=== PATIENT | male | born 1950 | race Two or more races ===

== ENCOUNTER 2024-03-19 14:19 | Inpatient (IN) | payer OTHER, MEDICAID ==
[~2024-03-19] VITALS: Ht 172.7 cm; Wt 71.0 kg
[~2024-03-19 14:19] MED LIST: ALLO100T PO; AMLO1TAB23 PO; APIX5TAB PO; ASPI-325 PO; DAPA1TAB4 PO; FURO20TA4 PO; INSU100I54 SC; INSU100I74 SC; INSUINJ37 SC; METO25TA93 PO; MYCO1TAB2 PO; PANT40TA57 PO; PRE5T PO
--- NOTE | 2024-03-19 14:42 | ED.PDOC ---
HPI Comments 73y M who presents to the ED for chief complaint of chest pain. Per EMS, pt was at [facility] and states he stood up and started to feel lightheaded and fell to the floor. EMS states pt did not have syncopal but states after fall, he started to have chest pain by the L side of his heart and EMS was called to the scene. EMS states pt pain was 9/10, constant, L side of chest, with no associated exacerbating or relieving factors. Pt was given 1 nitro and pt pain went from 9/10 to 7/10. Pt was given IV fluids and brought to the ED. Pt has noted history of AFIB, HTN and prior CT and is currently blood thinner eliquis. Pt otherwise has stable vitals in the ED. Pt is poor historian. Chief Complaint: Chest Pain Time Seen by MD: 14:49 Reviewed Notes: Nurses Notes, Managing Jeweler Notes Information Source: Patient, Emergency Med Personnel Mode of Arrival: EMS Brought in by: EMS Past Medical History PAST MEDICAL HISTORY: AFIB, HTN, CT Surgical History: PTCA Family History Family History: Unknown Social History Smoker: Non-Smoker Alcohol: Denies ETOH Use Drugs: Denies Drug Use Lives In: Home Constitutional: denies: chills, diaphoresis, fatigue, fever, malaise, sweats, weakness, others EENTM: denies: blurred vision, double vision, ear bleeding, ear discharge, ear drainage, ear pain, ear ringing, eye pain, eye redness, hearing loss, mouth pain, mouth swelling, nasal discharge, nose bleeding, nose congestion, nose pain, photophobia, tearing, throat pain, throat swelling, voice changes, others Respiratory: denies: cough, hemoptysis, orthopnea, SOB at rest, shortness of breath, SOB with excertion, stridor, wheezing, others Cardiovascular: reports: chest pain; denies: dizzy spells, diaphoresis, Dyspnea on exertion, edema, irregular heart beat, left arm pain, lightheadedness, palpitations, PND, syncope, others Gastrointestinal: denies: abdomen distended, abdominal pain, blood streaked bowels, constipated, diarrhea, dysphagia, difficulty swallowing, hematemesis, melena, nausea, poor appetite, poor fluid intake, rectal bleeding, rectal pain, vomiting, others Genitourinary: denies: burning, dysuria, flank pain, frequency, hematuria, incontinence, penile discharge, penile sore, pain, testicle pain, testicle swelling, urgency, others Neurological: denies: dizziness, fainting, headache, left sided numbness, left sided weakness, numbness, paresthesia, pre-existing deficit, right sided numbness, right sided weakness, seizure, speech problems, tingling, tremors, weakness, others Musculoskeletal: denies: back pain, gout, joint pain, joint swelling, muscle pain, muscle stiffness, neck pain, others Integumetry: denies: bruises, change in color, change in hair/nails, dryness, laceration, lesions, lumps, rash, wounds, others Allergic/Immunocompromised: denies: Difficulty Healing, Frequent Infections, Hives, Itching, others Hematologic/Lymphatic: denies: anemia, blood clots, easy bleeding, easy bruising, swollen glands, others Endocrine: denies: excessive hunger, excessive sweating, excessive thirst, excessive urination, flushing, intolerance to cold, intolerance to heat, unexplained weight gain, unexplained weight loss, others Psychiatric: denies: anxiety, bipolar disorder, depression, hopeless, panic disorder, schizophrenia, sleepless, suicidal, others All Other Systems: Reviewed and Negative Physical Exam General Appearance: Moderate Distress HEENT: Normal ENT Inspection, Pharynx Normal, TMs Normal Neck: Full Range of Motion, Non-Tender, Normal, Normal Inspection Respiratory: Chest Non-Tender, Lungs Clear, No Accessory Muscle Use, No Resp iratory Distress, Normal Breath Sounds Cardiovascular: Other (irregularly irregular rhythm) Breast Exam: Deferred Gastrointestinal: No Organomegaly, Non Tender, No Pulsatile Mass, Normal Bowel Sounds, Soft Genitalia: Deferred Pelvic: Deferred Rectal: Deferred Extremities: No calf tenderness, Normal capillary refill, Normal inspection, Normal range of motion, Non-tender, No pedal edema Musculoskeletal : Apperance: Normal Neurologic: Alert, electroless plater II-XII nml as Tested, No Motor Deficits, Normal Affect, Normal Mood, No Sensory Deficits Cerebellar Function: Normal Reflexes: Normal Skin: Dry, Normal Color, Warm Lymphatic: No Adenopathy Was a procedure done? Was a procedure done?: No CP Differential Dx Differential Diagnosis: A-fib, A-Flutter, Angina, Anxiety / Panic Attack, Heart Failure, CT, Pulmonary Embolus, PVC's Differential Diagnosis: Chest Wall Pain, Costochondritis X-Ray, Labs, Meds, VS Vital Signs Date Time Temp Pulse Resp B/P (MAP) Pulse Ox O2 Delivery O2 Flow Rate FiO2 03/19/24 15:15 56 14 156/72 03/19/24 14:53 52 15 100 Room Air* 0 21 03/19/24 14:34 98.1 61 16 133/61 (85) 99 03/19/24 14:22 65 Lab Test 03/19/24 14:41 Range/Units White Blood Count 4.5 4.4-10.8 10^3/uL Red Blood Count 4.53 4.5-5.90 10^6/uL Hemoglobin 12.6 L 13.5-17.5 g/dL Hematocrit 39.5 L 41.0-53.0 % Mean Corpuscular Volume 87.2 80.0-100.0 fL Mean Corpuscular Hemoglobin 27.7 L 28.0-32.0 pg Mean Corpuscular Hemoglobin Concent 31.8 L 32.0-36.0 g/dL Red Cell Distribution Width 14.9 H 11.8-14.3 % Platelet Count 137 L 140-450 10^3/uL Mean Platelet Volume 9.7 6.9-10.8 fL Neutrophils (%) (Auto) 74.1 37.0-80.0 % Lymphocytes (%) (Auto) 17.0 10.0-50.0 % Monocytes (%) (Auto) 7.6 0.0-12.0 % Eosinophils (%) (Auto) 0.8 0.0-7.0 % Basophils (%) (Auto) 0.5 0.0-2.0 % Neutrophils # (Auto) 3.4 1.6-8.6 10 ^3/uL Lymphocytes # (Auto) 0.8 0.4-5.4 10 ^3/uL Monocytes # (Auto) 0.3 0-1.3 10 ^3/uL Eosinophils # (Auto) 0 0-0.8 10 ^3/uL Basophils # (Auto) 0 0-0.2 10 ^3/uL Nucleated Red Blood Cells 0.1 % Sodium Level 133 L 136-145 mmol/L Potassium Level 4.9 3.5-5.1 mmol/L Chloride Level 99 98-107 mmol/L Carbon Dioxide Level 23 20-31 mmol/L Anion Gap 11 5-15 Blood Urea Nitrogen 43 H 9-23 mg/dL Creatinine 2.41 H 0.700-1.30 mg/dL Glomerular Filtration Rate Calc 27 >90 mL/min BUN/Creatinine Ratio 17.8 10.0-20.0 Serum Glucose 464 *H 74-106 mg/dL Calcium Level 9.3 8.7-10.4 mg/dL Total Bilirubin 0.5 0.2-1.0 mg/dL Aspartate Amino Transferase (AST) < 8 L 13-40 U/L Alanine Aminotransferase (ALT) 16 7-40 U/L Alkaline Phosphatase 113 46-116 U/L Troponin I High Sensitivity 20 </=54 ng/L Total Protein 6.7 5.7-8.2 g/dL Albumin 4.6 3.2-4.8 g/dL Current Medications Medications (Trade) Dose Ordered Sig/Marquise Route Start Time Stop Time Status Last Admin Morphine Sulfate 4 mg ONCE ONCE IV 03/19/24 14:30 03/19/24 14:31 DC 03/19/24 15:15 Ondansetron HCl (Zofran) 4 mg ONCE ONCE IV 03/19/24 14:30 03/19/24 14:31 DC 03/19/24 15:15 Aspirin 81 mg ONCE ONCE PO 03/19/24 14:30 03/19/24 14:31 DC 03/19/24 15:15 [place] [id number] Ph: [phone] DIAGNOSTIC IMAGING Diagnostic Imaging Report : [id number] Signed PATIENT: DARLENE CABALLERO ACCT: [id number] UNIT: [id number] : 1950 LOC: ER ROOM / BED: / AGE / SEX: 73 / M ADM STATUS: REG ER SERVICE 1421 ORDERING PHYSICIAN: GRETTA MIGUEL MD PROCEDURE(s): CXRP - CHEST PORTABLE REASON: chest pain ORDER NUMBER(s): [id number], ACCESSION NUMBER(s): [id number] EXAM: XR Chest, 1 View CLINICAL INDICATION: chest pain TECHNIQUE: Frontal view of the chest. COMPARISON: None FINDINGS: LUNGS AND PLEURAL SPACES: Unremarkable. No consolidation. No pneumothorax. HEART: Cardiomegaly without overt failure. MEDIASTINUM: Unremarkable. Normal mediastinal contour. BONES/JOINTS: Unremarkable. No acute fracture. OTHER FINDINGS: . IMPRESSION: Cardiomegaly without overt failure. ATED BY: ANGELO COX MD DICTATED DATE/TIME: 03/19/241441 SIGNED BY: ANGELO COX MD SIGNED DATE/TIME: 03/19/241441 CC: Time of 1ST Reevaluation: 15:20 Reevaluation 1ST: Unchanged Time of 2ND Reevaluation: 15:32 Reevaluation 2ND: Unchanged Patient Education/Counseling: Diagnosis, Treatment Family Education/Counseling: Diagnosis, Treatment, No Family Present Departure 1 Departure Time of Disposition: 15:32 Impression: Primary Impression: Acute coronary syndrome Additional Impressions: Acute renal injury Type 2 diabetes mellitus with hyperglycemia Atrial fibrillation Disposition: ADMITTED INPATIENT Admit to: [facility] Condition: Guarded Discharged With: Self, Relative, Spouse Critical Care Note Critical Care Time?: Yes (45 min-critical care time only) Critical care comment: Total critical care time: Approximately 36 minutes Due to a high probability of clinically significant, life threatening deterioration, the patient required my highest level of preparedness to intervene emergently and I personally spent this critical care time directly and personally managing the patient. This critical care time included obtaining a history; examining the patient; pulse oximetry; ordering and review of studies; arranging urgent treatment with development of a management plan; evaluation of patient's response to treatment; frequent reassessment; and, discussions with other providers. This critical care time was performed to assess and manage the high probability of imminent, life-threatening deterioration that could result in multi-organ failure. It was exclusive of separately billable procedures and treating other patients. Stability Stability form required: No Heart Score Heart Score: Heart Score Response (Comments) Value History Moderate Suspicious 1 EKG Repolarization Disturb 1 Age >65 2 Risk Factors 1 or 2 risk factors 1 Troponin Normal limit 0 Total 5 I personally scribed for GRETTA MIGUEL MD ([place]) on 03/19/24 at 14:42. Electronically submitted by Tomeka Anderson (JOSE MIGUEL). I personally scribed for GRETTA MIGUEL MD ([place]) on 03/19/24 at 14:52. Electronically submitted by Tomeka Anderson (JOSE MIGUEL). GRETTA MIGUEL MD Mar 19, 2024 14:42
[2024-03-19 14:53] VITALS: PULSE 52; RESP 15; O2SAT 100
[2024-03-19 15:04] LABS: Basophils # (auto) 0 10 ^3/uL (0-0.2); Basophils % (auto) 0.5 % (0.0-2.0); Eosinophils # (auto) 0 10 ^3/uL (0-0.8); Eosinophils % (auto) 0.8 % (0.0-7.0); Hematocrit 39.5 % (41.0-53.0); Hemoglobin 12.6 g/dL (13.5-17.5); Lymphocytes # (auto) 0.8 10 ^3/uL (0.4-5.4); Mean Corpuscular Hemoglobin 27.7 pg (28.0-32.0); Mean Corpuscular Hgb Conc. 31.8 g/dL (32.0-36.0); Mean Corpuscular Volume 87.2 fL (80.0-100.0); Monocytes # (auto) 0.3 10 ^3/uL (0-1.3); Monocytes % (auto) 7.6 % (0.0-12.0); Neutrophils # (auto) 3.4 10 ^3/uL (1.6-8.6); Neutrophils % (auto) 74.1 % (37.0-80.0); Nucleated Red Blood Cells % 0.1 %; Platelet Count (auto) 137 10^3/uL (140-450); Red Blood Cells 4.53 10^6/uL (4.5-5.90); Red Cell Distribution Width 14.9 % (11.8-14.3); White Blood Cell 4.5 10^3/uL (4.4-10.8)
[2024-03-19 15:15] LABS: Alanine Aminotransferase 16 U/L (7-40); Albumin 4.6 g/dL (3.2-4.8); Alkaline Phosphatase 113 U/L (46-116); Anion Gap 11 (5-15); BUN/Creatinine Ratio 17.8 (10.0-20.0); Bilirubin, Total 0.5 mg/dL (0.2-1.0); Calcium 9.3 mg/dL (8.7-10.4); Carbon Dioxide 23 mmol/L (20-31); Chloride 99 mmol/L (98-107); Potassium 4.9 mmol/L (3.5-5.1); Total Protein 6.7 g/dL (5.7-8.2)
[2024-03-19] MEDS: ASPirin 81 mg TAB PO ONE (15:15)
[2024-03-19] MEDS: ONDANSETRON HCL 4 MG/2 ML VIAL IV ONE (15:15)
[2024-03-19] MEDS: MORPHINE SULFATE 4 MG/ML SYR/VIAL IV ONE (15:15)
[2024-03-19 15:20] LABS: Aspartate Aminotransferase < 8 U/L (13-40); Blood Urea Nitrogen 43 mg/dL (9-23); Sodium 133 mmol/L (136-145)
[2024-03-19 15:21] LABS: Glucose 464 mg/dL (74-106)
[2024-03-19] MEDS: InsuLIN REG 1unit/0.01ml Soln (100units/ml) IV ONE (16:00)
[2024-03-19] MEDS: SODIUM CHLORIDE 0.9% 1,000 ML IVB ONE (16:01)
--- NOTE | 2024-03-19 16:39 | ECG ---
[facility] Test Date: 2024-03-19 Test Time: 14:22:33 Pat Name: DARLENE CRANE Department: ER Room: 0278T Gender: M Brim Stiffener: CHELLE : 1950 Requested By: GRETTA MIGUEL Order Number: [id number] Reading MD: Barry Jones Measurements Intervals [place] Rate: 65 P: 0 [place]: 0 QRS: 39 QRSD: 101 T: 4 QT: 437 QTc: 455 Interpretive Statements Atrial fibrillation Probable LVH with secondary repol abnrm Electronically Signed On 03-23-2024 8:48:26 PST by Barry Jones Please click the below link to view image of tracing.
[2024-03-19 19:50] VITALS: PULSE 59; RESP 17; O2SAT 97
[2024-03-19] MEDS ORDERED: hydrALAZINE HCL 20 MG/ML VL IV PRN (20:15)
[2024-03-19] MEDS ORDERED: DEXTROSE (50%) 50ML SYRG IV PRN (20:15)
[2024-03-19] MEDS ORDERED: ONDANSETRON HCL 4 MG/2 ML VIAL IV PRN (20:15)
--- NOTE | 2024-03-19 23:21 | DVHHP2 ---
History of Present Illness Reason for Visit: Acute coronary syndrome History of Present Illness The patient is a 73-year-old male with past medical history of AFib, hypertension, WI, DM, and hyperlipidemia who presented to [place] [facility] ED with complaint of chest pain. Patient reports symptoms progressively get worse with lightheaded, syncopal episode, constant left chest pain, rating 9/10 numeric scale, getting worse that EMS were called. When EMS arrived on the scene, patient was given nitro, IV fluids, stabilized and EN route to our facility ED. patient was seen and evaluated in the ED, laboratory data shows WBC 4.5, platelets 137, sodium 133, potassium 4.9, BUN 43, creatinine 2.41, GFR 27, glucose 464, troponin 21, blood pressure 142/62, heart rate 58, temperature 98.0 F, O2 saturation 99% on room air. Chest x-ray revealing cardiomegaly without overt failure. Please see medication orders section in the computer. On my assessment, patient denies chest pain at this moment, no headache, no dizziness, no diaphoresis, no shortness of breaths, no nausea, no vomiting, no fever, no chills. Patient was admitted for further evaluation and medical management. Past Medical History AFIB, HTN, WI, DM, HLD Past Surgical History PTCA Family History Reviewed, noncontributory to the management of this case. Past Social History The patient lives at home, denies smoking, alcohol or illicit drugs abuse. Review of Systems Constitutional: Yes: Weakness; No: Fever, Chills, Sweats, Malaise, Other Eyes: No: Pain, Vision change, Conjunctivae inflammation, Eyelid inflammation, Other, Redness ENT: No: Ear pain, Ear discharge, Nose pain, Nose discharge, Nose congestion, Mouth pain, Mouth swelling, Throat pain, Throat swelling, Other Respiratory: No: Cough, Dry, Shortness of breath, SOB with excertion, Wheezing, Hemoptysis, Pleuritic Pain, Sputum, Wheezing, Other Cardiovascular: Chest Pain; No: Palpitations, Orthopnea, Paroxysmal Noc. Dyspnea, Edema, Lt Headedness, Other Gastrointestinal: No: Nausea, Vomiting, Abdominal Pain, Diarrhea, Constipation, Melena, Hematochezia, Other Genitourinary: No Dysuria, No Frequency, No Incontinence, No Hematuria, No Retention, No Other Musculoskeletal: No: other, neck pain, shoulder pain, arm pain, back pain, hand pain, leg pain, foot pain Skin: Other (Right foot wound); No: Rash, Lesions, Jaundice, Bruising Neurological: No: Weakness, Numbness, Incoordination, Change in speech, Confusion, Seizures, Other Allergies: Coded Allergies: NO KNOWN ALLERGIES (Unverified , 03/19/24) Medications Current Medications Medications Dose Ordered Sig/Marquise Route Start Time Stop Time Status Last Admin Dose Admin Atorvastatin Calcium 10 mg HS PO 03/19/24 22:00 Amlodipine Besylate 5 mg DAILY PO 03/20/24 10:00 Hydralazine HCl 10 mg Q6HP PRN IV 03/19/24 20:15 Diagnostic Test (Pha) 1 strip IQ4HR 03/20/24 00:00 Insulin Human Regular IQ4HR SC 03/20/24 00:00 Dextrose 50 ml UD PRN IV 03/19/24 20:15 Sodium Chloride 1,000 ml @ 60 mls/hr [id number] IV 03/19/24 20:15 Acetaminophen/ Hydrocodone Bitart 1 tab Q4HP PRN PO 03/19/24 20:15 Ondansetron HCl 4 mg Q4HP PRN IV 03/19/24 20:15 Docusate Sodium 100 mg BIDPRN PRN PO 03/19/24 20:15 Acetaminophen 650 mg Q6HP PRN PO 03/19/24 20:15 Apixaban 5 mg BID PO 03/19/24 22:00 Exam Vital Signs Vital Signs Date Time Temp Pulse Resp B/P (MAP) Pulse Ox O2 Delivery O2 Flow Rate FiO2 03/19/24 22:20 51 17 146/71 (96) 96 03/19/24 19:50 Room Air* 0 21 03/19/24 14:48 98.0 98.0 General Appearance: Alert, Oriented X3, Cooperative, No acute distress HEENT: Atraumatic, PERRLA, EOMI, Mucous membr. moist/pink Respiratory: Clear to auscultation, Normal air movement Cardiovascular: Regular rate, Normal S1, Normal S2, No murmurs Abdominal: Normal bowel sounds, Soft, No tenderness, No hepatospenomegaly, No masses Extremities: No clubbing, No cyanosis, No edema, Normal pulses, No tenderness/swelling Skin: No rashes, No significant lesion Neuro: Normal speech, Normal tone, Sensation intact, Cranial nerves 3-12 NL, Reflexes 2+, Other (Generalized weakness) Psych/Mental Status: Mental status NL, Mood NL Labs/Xrays Labs Test 03/19/24 15:36 03/19/24 15:24 03/19/24 14:41 Range/Units Troponin I High Sensitivity 21 </=54 ng/L POC Glucose 458 *H 70-106 mg/dl White Blood Count 4.5 4.4-10.8 10^3/uL Red Blood Count 4.53 4.5-5.90 10^6/uL Hemoglobin 12.6 L 13.5-17.5 g/dL Hematocrit 39.5 L 41.0-53.0 % Mean Corpuscular Volume 87.2 80.0-100.0 fL Mean Corpuscular Hemoglobin 27.7 L 28.0-32.0 pg Mean Corpuscular Hemoglobin Concent 31.8 L 32.0-36.0 g/dL Red Cell Distribution Width 14.9 H 11.8-14.3 % Platelet Count 137 L 140-450 10^3/uL Mean Platelet Volume 9.7 6.9-10.8 fL Neutrophils (%) (Auto) 74.1 37.0-80.0 % Lymphocytes (%) (Auto) 17.0 10.0-50.0 % Monocytes (%) (Auto) 7.6 0.0-12.0 % Eosinophils (%) (Auto) 0.8 0.0-7.0 % Basophils (%) (Auto) 0.5 0.0-2.0 % Neutrophils # (Auto) 3.4 1.6-8.6 10 ^3/uL Lymphocytes # (Auto) 0.8 0.4-5.4 10 ^3/uL Monocytes # (Auto) 0.3 0-1.3 10 ^3/uL Eosinophils # (Auto) 0 0-0.8 10 ^3/uL Basophils # (Auto) 0 0-0.2 10 ^3/uL Nucleated Red Blood Cells 0.1 % Sodium Level 133 L 136-145 mmol/L Potassium Level 4.9 3.5-5.1 mmol/L Chloride Level 99 98-107 mmol/L Carbon Dioxide Level 23 20-31 mmol/L Anion Gap 11 5-15 Blood Urea Nitrogen 43 H 9-23 mg/dL Creatinine 2.41 H 0.700-1.30 mg/dL Glomerular Filtration Rate Calc 27 >90 mL/min BUN/Creatinine Ratio 17.8 10.0-20.0 Serum Glucose 464 *H 74-106 mg/dL Calcium Level 9.3 8.7-10.4 mg/dL Total Bilirubin 0.5 0.2-1.0 mg/dL Aspartate Amino Transferase (AST) < 8 L 13-40 U/L Alanine Aminotransferase (ALT) 16 7-40 U/L Alkaline Phosphatase 113 46-116 U/L Total Protein 6.7 5.7-8.2 g/dL Albumin 4.6 3.2-4.8 g/dL PATIENT: DARLENE CABALLERO ACCT: [id number] UNIT: [id number] : 1950 LOC: ER ROOM / BED: / AGE / SEX: 73 / M ADM STATUS: REG ER SERVICE 1421 ORDERING PHYSICIAN: GRETTA MIGUEL MD PROCEDURE(s): CXRP - CHEST PORTABLE REASON: chest pain ORDER NUMBER(s): [id number], ACCESSION NUMBER(s): [id number] EXAM: XR Chest, 1 View CLINICAL INDICATION: chest pain TECHNIQUE: Frontal view of the chest. COMPARISON: None FINDINGS: LUNGS AND PLEURAL SPACES: Unremarkable. No consolidation. No pneumothorax. HEART: Cardiomegaly without overt failure. MEDIASTINUM: Unremarkable. Normal mediastinal contour. BONES/JOINTS: Unremarkable. No acute fracture. OTHER FINDINGS: IMPRESSION: Cardiomegaly without overt failure. Assessment/Plan Assessment/Plan Acute coronary syndrome Atrial fibrillation Right foot wound Acute renal injury Generalized weakness Type 2 diabetes mellitus with hyperglycemia Plan 1. Admit to telemetry unit 2. Breathing treatment 3. Pain control management 4. Management of fluids and electrolytes 5. Consultation for Nephrology/wound care 6. Diagnostic tests chest x-ray 7. DVT prophylaxis-on Eliquis 8. Repeat labs CBC, CMP in a.m. 9. Continue with current medical management 10. Treatment plan discussed with patient and RN. Patient verbalized understanding. Plan discussed with: Patient, Other (RN) My Orders Orders - LILO PRESTON DNP Procedure Category Date Status Time Consistent DIET 03/20/24 Transmitted Carb(Ccho)Diabetes Breakfast Atorvastatin (Lipitor) PHA 03/19/24 In Process 22:00 Amlodipine Tablet PHA 03/20/24 In Process (Norvasc Tablet) 10:00 Hydralazine Injection PHA 03/19/24 In Process (Apresoline Inject 20:15 *[facility] CONS 03/19/24 Transmitted -[place] 20:07 Glucose Blood PHA 03/20/24 In Process (Accu-Chek Comfort 00:00 Insulin R (Human) PHA 03/20/24 In Process (Insulin R) 00:00 Dextrose 50% Syringe PHA 03/19/24 In Process 20:15 Allergies NADIRA 03/19/24 In Process 20:07 Code Status CODE 03/19/24 Transmitted 20:07 Sodium Chloride 0.9% PHA 03/19/24 In Process 20:15 Oxygen Per Hour RT 03/19/24 Transmitted 20:07 Hydrocodone-Acet PHA 03/19/24 In Process 5/325mg Tab ([place] 20:15 Ondansetron Hcl PHA 03/19/24 In Process (Zofran) 20:15 Docusate Sodium PHA 03/19/24 In Process Capsule (Colace 20:15 Complete Blood Count LAB 03/20/24 Verified 04:00 Comprehensive LAB 03/20/24 Verified Metabolic Panel 04:00 Condition: Serious NADIRA 03/19/24 In Process 20:07 Acetaminophen Tablet PHA 03/19/24 In Process (Tylenol Tablet) 20:15 Bedrest With Bathroom NADIRA 03/19/24 In Process Privileg 20:07 Sequential NADIRA 03/19/24 In Process Compression Device Apixaban (Eliquis) PHA 03/19/24 In Process 22:00 Admit ADMIT 03/19/24 Verified 23:19 Nitroglycerin [facility] 03/19/24 Verified Sublingual (Ntrostat 23:30 Morphine Sulfate PHA 03/19/24 Verified Injection 23:30 Notify Md Of Changes [facility] 03/19/24 Verified From Base 23:19 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 [facility] 03/19/24 Verified 24 Hours 23:19 Emergency Dysrhythmia [facility] 03/19/24 Verified Protocol 23:19 Rhythm Strips Once [facility] 03/19/24 Verified Every Shift 23:19 Oxygen By Nasal RT 03/19/24 Verified Cannula 23:19 Problem List: (1) Acute coronary syndrome (2) Atrial fibrillation (3) Wound of right foot (4) Acute renal injury (5) Generalized weakness (6) Type 2 diabetes mellitus with hyperglycemia Date of Service: Mar 19, 2024 Billing Provider: LILO PRESTON DNP Common Visit Codes: 28091-MGXGITD INP/OBS CARE (HIGH) LILO PRESTON DNP Mar 19, 2024 23:21
[2024-03-19] MEDS ORDERED: MORPHINE SULFATE INJ 2 MG/ml SYRG IV PRN (23:30)
[2024-03-19] MEDS ORDERED: NITROGLYCERIN 0.4 MG SL TAB SL PRN (23:30)
[2024-03-20] VITALS (9 sets, daily range): BP systolic 107–166; BP diastolic 63–98; PULSE 54–84; RESP 16–20; TEMP 97.6–98.4; O2SAT 94–100
[2024-03-20] MEDS: APIXABAN 5 MG TAB PO SCH (00:10)
[2024-03-20] MEDS: ATORVASTATIN 20 MG TAB PO SCH (00:10)
[2024-03-20] MEDS: SODIUM CHLORIDE 0.9% 1,000 ML IV SCH (00:10)
[2024-03-20] MEDS: ACCU-CHEK COMFORT CURVE STRIP VI SCH (00:22)
[2024-03-20] MEDS: InsuLIN REG 1unit/0.01ml Soln (100units/ml) SC SCH (00:23)
[2024-03-20] MEDS: HYDROcodone-ACET 5/325MG TAB PO PRN (03:29)
[2024-03-20 08:25] LABS: Basophils # (auto) 0 10 ^3/uL (0-0.2); Basophils % (auto) 0.8 % (0.0-2.0); Eosinophils # (auto) 0.3 10 ^3/uL (0-0.8); Eosinophils % (auto) 5.3 % (0.0-7.0); Hematocrit 35.9 % (41.0-53.0); Hemoglobin 11.8 g/dL (13.5-17.5); Lymphocytes # (auto) 1.1 10 ^3/uL (0.4-5.4); Lymphocytes % (auto) 23.3 % (10.0-50.0); Mean Corpuscular Hemoglobin 28.1 pg (28.0-32.0); Mean Corpuscular Hgb Conc. 32.7 g/dL (32.0-36.0); Mean Corpuscular Volume 85.8 fL (80.0-100.0); Monocytes # (auto) 0.6 10 ^3/uL (0-1.3); Monocytes % (auto) 11.5 % (0.0-12.0); Neutrophils # (auto) 2.9 10 ^3/uL (1.6-8.6); Neutrophils % (auto) 59.1 % (37.0-80.0); Nucleated Red Blood Cells % 0.1 %; Platelet Count (auto) 137 10^3/uL (140-450); Red Blood Cells 4.19 10^6/uL (4.5-5.90); Red Cell Distribution Width 14.9 % (11.8-14.3); White Blood Cell 4.9 10^3/uL (4.4-10.8)
[2024-03-20 08:41] LABS: Alanine Aminotransferase 13 U/L (7-40); Alkaline Phosphatase 95 U/L (46-116); Anion Gap 8 (5-15); Aspartate Aminotransferase 15 U/L (13-40); BUN/Creatinine Ratio 16.4 (10.0-20.0); Calcium 9.3 mg/dL (8.7-10.4); Carbon Dioxide 26 mmol/L (20-31); Chloride 104 mmol/L (98-107); Potassium 4.2 mmol/L (3.5-5.1); Sodium 138 mmol/L (136-145)
[2024-03-20 08:42] LABS: Albumin 4.1 g/dL (3.2-4.8); Bilirubin, Total 0.8 mg/dL (0.2-1.0); Total Protein 6.2 g/dL (5.7-8.2)
[2024-03-20 08:44] LABS: Blood Urea Nitrogen 32 mg/dL (9-23); Glucose 109 mg/dL (74-106)
[2024-03-20] MEDS ORDERED: ATOR20TA50 PO (08:48)
--- NOTE | 2024-03-20 09:31 | DVHINCON2 ---
Date of service: Mar 20, 2024 Referring Physician Torey Nava, nurse practitioner Reason for Consultation Acute kidney injury History of Present Illness Patient is a 73-year-old male with past medical history significant for diabetes mellitus, AFIB, HTN, and coronary artery disease is admitted for chest pain. On admission patient found to have elevated BUN creatinine nephrology is consulted for acute kidney injury Past Medical History PAST MEDICAL HISTORY: AFIB, HTN, [place], diabetes mellitus Past Surgical History PTCA Allergies: Coded Allergies: NO KNOWN ALLERGIES (Unverified , 03/19/24) Home Meds Reported Medications Allopurinol (Allopurinol) 100 Mg Tab, 1 DAILY 03/20/24 Atorvastatin Calcium (ATORVASTATIN CALCIUM) 20 Mg Tab, 1 TAB PO 03/20/24 Apixaban Base (ELIQUIS) 5 Mg Tab, 1 TAB BID 03/20/24 Furosemide (Furosemide) 20 Mg Tab, 1 DAILY 03/20/24 Pantoprazole Sodium Sesquihydr (Pantoprazole Sodium Dr) 40 Mg Tab, 1 TAB PO DAILY 03/20/24 Aspirin (Aspirin Low Dose) 81 Mg Tab, 1 TAB DAILY 03/20/24 Dapagliflozin Propanediol (Farxiga) 10 Mg Tab, 1 DAILY 03/20/24 Prednisone (Prednisone) 5 Mg Tab, 1 TAB DAILY 03/20/24 Insulin Lispro (Insulin Lispro Kwikpen) 100 Unit/Ml Inj, 8 UNIT SC TID 03/20/24 Insulin Glargine (Lantus Solostar) 100 Unit/Ml Inj 03/20/24 Amlodipine Besylate (Amlodipine Besylate) 10 Mg Tab, 1 TAB PO DAILY 03/20/24 Metoprolol Succinate (Metoprolol Succinate Er) 25 Mg Tab, 0.5 TAB PO DAILY 03/20/24 Current Medications Current Medications Medications (Trade) Dose Ordered Sig/Marquise Route PRN Reason Start Time Stop Time Status Last Admin Atorvastatin Calcium (Lipitor) 10 mg HS PO 03/19/24 22:00 03/20/24 00:10 Amlodipine Besylate (Norvasc Tablet) 5 mg DAILY PO 03/20/24 10:00 03/20/24 09:50 Hydralazine HCl (Apresoline Injection) 10 mg Q6HP PRN IV SBP>150 03/19/24 20:15 Diagnostic Test (Pha) (Accu-Chek Comfort Curve T) 1 strip IQ4HR 1/26/25 00:00 03/20/24 08:00 Insulin Human Regular (InsuLIN R) IQ4HR SC 03/20/24 00:00 03/20/24 08:51 Dextrose 50 ml UD PRN IV Blood Sugar LESS THAN 60 03/19/24 20:15 Sodium Chloride 1,000 ml @ 60 mls/hr [id number] IV 03/19/24 20:15 03/20/24 00:10 Acetaminophen/ Hydrocodone Bitart ([place] 5/325MG Tab) 1 tab Q4HP PRN PO MODERATE PAIN (4-6 PAIN SCALE) 03/19/24 20:15 03/20/24 08:48 Ondansetron HCl (Zofran) 4 mg Q4HP PRN IV NAUSEA / VOMITING 03/19/24 20:15 Docusate Sodium (Colace Capsule) 100 mg BIDPRN PRN PO FOR CONSTIPATION 03/19/24 20:15 Acetaminophen (Tylenol Tablet) 650 mg Q6HP PRN PO PAIN SCALE 1-3 OR TEMP>100.4 03/19/24 20:15 Apixaban (Eliquis) 5 mg BID PO 03/19/24 22:00 03/20/24 09:48 Nitroglycerin (Ntrostat Sublingual) 0.4 mg Q5MINP PRN SL FOR CHEST PAIN 03/19/24 23:30 Morphine Sulfate 2 mg Q30M PRN IV FOR CHEST PAIN 03/19/24 23:30 Insulin Glargine (Lantus) 20 units HS SC 03/20/24 22:00 Family History: Diabetes mellitus G8 MOTHER G8 FATHER Hypertension G8 MOTHER G8 FATHER Review of Systems All 12 item review of systems reviewed with the patient nonsignificant except what is mentioned in the history of present illness H&P Exam Vital Signs/I&O Vital Sign Date Time Temp Pulse Resp B/P (MAP) Pulse Ox O2 Delivery O2 Flow Rate FiO2 03/20/24 09:50 160/82 03/20/24 08:48 98.4 77 16 99 98.4 03/20/24 03:56 Room Air* 0 21 Intake and Output 03/19/24 03/20/24 19:00 07:00 Intake Total 50 ml Output Total 400 ml Balance -350 ml Intake Oral 50 ml Output Urine Total 400 ml Physical Exam Patient is awake alert Lungs clear to auscultation bilaterally Cardiac exam irregular rate and rhythm GI soft nontender was normal Extremities no clubbing cyanosis or edema Neuro nonfocal Labs/Diagnostic Data Labs/Diagnostic Data Laboratory Tests Test 03/20/24 08:27 03/20/24 07:30 03/20/24 04:17 03/20/24 03:10 Range/Units POC Glucose 141 H 114 H 70-106 mg/dl White Blood Count 4.9 4.4-10.8 10^3/uL Red Blood Count 4.19 L 4.5-5.90 10^6/uL Hemoglobin 11.8 L 13.5-17.5 g/dL Hematocrit 35.9 L 41.0-53.0 % Mean Corpuscular Volume 85.8 80.0-100.0 fL Mean Corpuscular Hemoglobin 28.1 28.0-32.0 pg Mean Corpuscular Hemoglobin Concent 32.7 32.0-36.0 g/dL Red Cell Distribution Width 14.9 H 11.8-14.3 % Platelet Count 137 L 140-450 10^3/uL Mean Platelet Volume 9.5 6.9-10.8 fL Neutrophils (%) (Auto) 59.1 37.0-80.0 % Lymphocytes (%) (Auto) 23.3 10.0-50.0 % Monocytes (%) (Auto) 11.5 0.0-12.0 % Eosinophils (%) (Auto) 5.3 0.0-7.0 % Basophils (%) (Auto) 0.8 0.0-2.0 % Neutrophils # (Auto) 2.9 1.6-8.6 10 ^3/uL Lymphocytes # (Auto) 1.1 0.4-5.4 10 ^3/uL Monocytes # (Auto) 0.6 0-1.3 10 ^3/uL Eosinophils # (Auto) 0.3 0-0.8 10 ^3/uL Basophils # (Auto) 0 0-0.2 10 ^3/uL Nucleated Red Blood Cells 0.1 % Sodium Level 138 # 136-145 mmol/L Potassium Level 4.2 3.5-5.1 mmol/L Chloride Level 104 98-107 mmol/L Carbon Dioxide Level 26 20-31 mmol/L Anion Gap 8 5-15 Blood Urea Nitrogen 32 #H 9-23 mg/dL Creatinine 1.95 H 0.700-1.30 mg/dL Glomerular Filtration Rate Calc 35 >90 mL/min BUN/Creatinine Ratio 16.4 10.0-20.0 Serum Glucose 109 #H 74-106 mg/dL Calcium Level 9.3 8.7-10.4 mg/dL Phosphorus Level 4.0 2.4-5.1 mg/dL Magnesium Level 2.4 1.6-2.6 mg/dL Total Bilirubin 0.8 0.2-1.0 mg/dL Aspartate Amino Transferase (AST) 15 13-40 U/L Alanine Aminotransferase (ALT) 13 7-40 U/L Alkaline Phosphatase 95 46-116 U/L Total Protein 6.2 5.7-8.2 g/dL Albumin 4.1 3.2-4.8 g/dL Urine Color Light-yellow Yellow Urine Clarity Clear Clear Urine pH 5.5 5.0-9.0 Urine Specific [place] 1.021 1.001-1.035 Urine Protein Negative Negative Urine Ketones Negative Negative Urine Blood Negative Negative /uL Urine Nitrite Negative Negative Urine Bilirubin Negative Negative Urine Urobilinogen Normal Negative mg/dL Urine Leukocyte Esterase Negative Negative /uL Urine RBC 1 0 - 3 /hpf Urine Microscopic WBC 0-3 /HPF Urine Squamous Epithelial Cells None seen <5 /hpf Urine Bacteria None seen None Seen /hpf Urine Creatinine 46.43 30.0-125.0 mg/dL Urine Protein/Creatinine Ratio 0.24 Urine Sodium 20 L 40-220 mmol/L Urine Glucose 4+ H Normal mg/dL Urine Total Protein 11.3 1-14 mg/dL Test 03/20/24 00:22 03/19/24 15:36 03/19/24 15:24 03/19/24 14:41 Range/Units POC Glucose 85 458 *H 70-106 mg/dl Troponin I High Sensitivity 21 20 </=54 ng/L White Blood Count 4.5 4.4-10.8 10^3/uL Red Blood Count 4.53 4.5-5.90 10^6/uL Hemoglobin 12.6 L 13.5-17.5 g/dL Hematocrit 39.5 L 41.0-53.0 % Mean Corpuscular Volume 87.2 80.0-100.0 fL Mean Corpuscular Hemoglobin 27.7 L 28.0-32.0 pg Mean Corpuscular Hemoglobin Concent 31.8 L 32.0-36.0 g/dL Red Cell Distribution Width 14.9 H 11.8-14.3 % Platelet Count 137 L 140-450 10^3/uL Mean Platelet Volume 9.7 6.9-10.8 fL Neutrophils (%) (Auto) 74.1 37.0-80.0 % Lymphocytes (%) (Auto) 17.0 10.0-50.0 % Monocytes (%) (Auto) 7.6 0.0-12.0 % Eosinophils (%) (Auto) 0.8 0.0-7.0 % Basophils (%) (Auto) 0.5 0.0-2.0 % Neutrophils # (Auto) 3.4 1.6-8.6 10 ^3/uL Lymphocytes # (Auto) 0.8 0.4-5.4 10 ^3/uL Monocytes # (Auto) 0.3 0-1.3 10 ^3/uL Eosinophils # (Auto) 0 0-0.8 10 ^3/uL Basophils # (Auto) 0 0-0.2 10 ^3/uL Nucleated Red Blood Cells 0.1 % Sodium Level 133 L 136-145 mmol/L Potassium Level 4.9 3.5-5.1 mmol/L Chloride Level 99 98-107 mmol/L Carbon Dioxide Level 23 20-31 mmol/L Anion Gap 11 5-15 Blood Urea Nitrogen 43 H 9-23 mg/dL Creatinine 2.41 H 0.700-1.30 mg/dL Glomerular Filtration Rate Calc 27 >90 mL/min BUN/Creatinine Ratio 17.8 10.0-20.0 Serum Glucose 464 *H 74-106 mg/dL Calcium Level 9.3 8.7-10.4 mg/dL Total Bilirubin 0.5 0.2-1.0 mg/dL Aspartate Amino Transferase (AST) < 8 L 13-40 U/L Alanine Aminotransferase (ALT) 16 7-40 U/L Alkaline Phosphatase 113 46-116 U/L Total Protein 6.7 5.7-8.2 g/dL Albumin 4.6 3.2-4.8 g/dL Assessment Acute kidney injury superimposed Chronic Kidney Disease secondary hemodynamic mediated Uncontrolled diabetes mellitus Hypertension A Fib Chest pain Recommendations Closely monitor fluid and electrolytes Avoid nephrotoxic medications Strict I&Os Check urine electrolytes and urine protein excretion Check kidney ultrasound Insulin sliding scale Cardiology consult We will continue to follow Patient seen and examined by myself. I discussed my plan of care with the patient and primary nurse at the bedside I would like thank Torey for the consult, will follow up Plan discussed with: Patient CHEPE HOLLINS MD Mar 20, 2024 09:31
[2024-03-20 09:39] LABS: Urine Bacteria None Seen /hpf (None Seen)
[2024-03-20] MEDS: amLODIPine BESYLATE 5 MG TAB PO SCH (09:50)
[2024-03-20 10:12] LABS: Magnesium 2.4 mg/dL (1.6-2.6)
[2024-03-20 10:15] LABS: Urine Blood Negative /uL (Negative); Urine Clarity Clear (Clear); Urine Color Light-Yellow (Yellow); Urine Protein, UAD Negative (Negative); Urine Specific Gravity 1.021 (1.001-1.035); Urine Squamous Epithelial Cell None Seen /hpf (<5); Urine Urobilinogen Normal (Negative); Urine pH 5.5 (5.0-9.0)
[2024-03-20 10:20] LABS: Protein, Urine 11.3 mg/dL (1-14)
[2024-03-20 10:22] LABS: Creatinine, Urine 46.43 mg/dL (30.0-125.0); Urine Protein/Creatinine Ratio 0.24
--- NOTE | 2024-03-20 11:05 | DVH ---
INDICATION: palomo TECHNIQUE: Multiple real-time sonographic images of the kidneys and bladder were obtained. COMPARISON: None FINDINGS: RIGHT kidney measures 5.6 cm in length. Decreased cortical thickness and increased parenchymal echog enicity. No hydronephrosis. LEFT kidney measures 6.2 cm in length. Decreased cortical thickness and increased parenchymal echoge nicity. No hydronephrosis. No large intraluminal masses are seen in the bladder. Patient unable to void at this time. IMPRESSION: 1. Atrophic bilateral kidneys with increased echogenicity, which can be seen with medical renal disea se. No hydronephrosis.
--- NOTE | 2024-03-20 13:24 | DVHPN2 ---
Subjective Feels better. No chest pain at this time Reviewed: Care Plan, H&P, Labs, Medications, Previous Orders, Radiology, Other ([employer]) Changes from previous H/P or p: No Changes Objective Vitals Vital Signs Date Time Temp Pulse Resp B/P (MAP) Pulse Ox O2 Delivery O2 Flow Rate FiO2 03/20/24 13:14 98.1 55 16 166/98 (120) 100 98.1 03/20/24 08:00 Room Air* 0 21 Intake/Output Intake and Output 03/20/24 06:59 Intake Total 50 ml Output Total 400 ml Balance -350 ml Intake Oral 50 ml Output Urine Total 400 ml General Appearance: Alert, Oriented X3, Cooperative, No acute distress HEENT: Atraumatic Lungs: Clear to auscultation Cardiovascular: Regular rate, Other (2/6 AMADEO in AV area) Abdomen: Normal bowel sounds, Soft, No tenderness Extremities: Other (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 with healed wound.) Medications Current Medications Medications Dose Ordered Sig/Marquise Route Start Time Stop Time Status Last Admin Dose Admin Atorvastatin Calcium 10 mg HS PO 03/19/24 22:00 03/20/24 00:10 10 MG Amlodipine Besylate 5 mg DAILY PO 03/20/24 10:00 03/20/24 09:50 5 MG Hydralazine HCl 10 mg Q6HP PRN IV 03/19/24 20:15 Diagnostic Test (Pha) 1 strip IQ4HR 03/20/24 00:00 03/20/24 08:00 1 STRIP Insulin Human Regular IQ4HR SC 03/20/24 00:00 03/20/24 08:51 2 UNITS Dextrose 50 ml UD PRN IV 03/19/24 20:15 Sodium Chloride 1,000 ml @ 60 mls/hr [id number] IV 03/19/24 20:15 03/20/24 00:10 60 MLS/HR Acetaminophen/ Hydrocodone Bitart 1 tab Q4HP PRN PO 03/19/24 20:15 03/20/24 08:48 1 TAB Ondansetron HCl 4 mg Q4HP PRN IV 03/19/24 20:15 Docusate Sodium 100 mg BIDPRN PRN PO 03/19/24 20:15 Acetaminophen 650 mg Q6HP PRN PO 03/19/24 20:15 Apixaban 5 mg BID PO 03/19/24 22:00 03/20/24 09:48 5 MG Nitroglycerin 0.4 mg Q5MINP PRN SL 03/19/24 23:30 Morphine Sulfate 2 mg Q30M PRN IV 03/19/24 23:30 Insulin Glargine 20 units HS SC 03/20/24 22:00 Laboratory Results Laboratory Tests 03/20/24 07:30 Chemistry Test 03/19/24 14:41 03/20/24 07:30 Albumin 4.6 g/dL (3.2-4.8) 4.1 g/dL (3.2-4.8) Calcium Level 9.3 mg/dL (8.7-10.4) 9.3 mg/dL (8.7-10.4) Total Protein 6.7 g/dL (5.7-8.2) 6.2 g/dL (5.7-8.2) Magnesium Level 2.4 mg/dL (1.6-2.6) Phosphorus Level 4.0 mg/dL (2.4-5.1) LFT Test 03/19/24 14:41 03/20/24 07:30 Alanine Aminotransferase (ALT) 16 U/L (7-40) 13 U/L (7-40) Alkaline Phosphatase 113 U/L (46-116) 95 U/L (46-116) Aspartate Amino Transferase (AST) < 8 U/L (13-40) L 15 U/L (13-40) Total Bilirubin 0.5 mg/dL (0.2-1.0) 0.8 mg/dL (0.2-1.0) Urinalysis Test 03/20/24 03:10 Urine Color Light-yellow (Yellow) Urine Clarity Clear (Clear) Urine pH 5.5 (5.0-9.0) Urine Specific [place] 1.021 (1.001-1.035) Urine Protein Negative (Negative) Urine Ketones Negative (Negative) Urine Blood Negative /uL (Negative) Urine Nitrite Negative (Negative) Urine Bilirubin Negative (Negative) Urine Urobilinogen Normal mg/dL (Negative) Urine Leukocyte Esterase Negative /uL (Negative) Urine RBC 1 /hpf (0 - 3) Urine Microscopic WBC /HPF (0-3) Urine Squamous Epithelial Cells None seen /hpf (<5) Urine Bacteria None seen /hpf (None Seen) Urine Creatinine 46.43 mg/dL (30.0-125.0) Urine Protein/Creatinine Ratio 0.24 Urine Sodium 20 mmol/L (40-220) L Urine Glucose 4+ mg/dL (Normal) H Urine Total Protein 11.3 mg/dL (1-14) Assessment/Plan Assessment/Plan Chest pain of unclear etiology Syncope AFib Hypertension History of NC Diabetes Dyslipidemia Anemia of chronic disease Thrombocytopenia Acute kidney injury atop chronic kidney disease Status post right distal metatarsal amputation/finish antibiotic last week/wound healed and closed Plan: Cardiology consultation. D-dimer. Lantus. Echocardiogram and carotid ultrasound. Further plan per orders Plan discussed with: Patient My Orders Orders - BUDDY SOMMERS MD Procedure Category Date Status Time Insulin Lantus PHA 03/20/24 In Process (Glargine) (Lantus) 22:00 D-Dimer LAB 03/20/24 Logged 13:20 * Cardiology Consult CONS 03/20/24 Transmitted 13:20 Date of Service: Mar 20, 2024 Billing Provider: BUDDY SOMMERS MD Common Visit Codes: [id number] INP/OBS CARE(HIGH) BUDDY SOMMERS MD Mar 20, 2024 13:24
[2024-03-20] MEDS: INSULIN LANTUS (GLARGINE) 1 /0.01ml (100units/ml) SC ONE (14:17)
--- NOTE | 2024-03-20 14:30 | DVH ---
PROCEDURE: US CAROTID DUPLX W COLOR DOP 03/20/2024 02:01 PM INDICATION: syncope COMPARISON: None TECHNIQUE: Real-time grayscale and color Doppler images of the neck arteries were obtained with spect ral analysis performed. FINDINGS: RIGHT: No significant atherosclerotic plaque identified in the carotid. Normal spectral waveforms are seen. ICA peak systolic velocity: 117 cm/s ICA end-diastolic velocity: 43 cm/s ICA/CCA ratios: 1.2 LEFT: No significant atherosclerotic plaque identified in the carotid. Normal spectral waveforms are seen. ICA peak systolic velocity: 108 cm/s ICA end-diastolic velocity: 34 cm/s ICA/CCA ratios: 0.8 VERTEBRAL ARTERIES: Normal antegrade flow is seen bilaterally. Normal spectral waveforms. IMPRESSION: 1. No hemodynamically significant carotid artery stenosis identified bilaterally. Reference: Radiology 2003; 229:340-346 Normal ICA PSV is <125 cm/sec and no plaque or intimal thickening is visible sonographically additional criteria include ICA/CCA PSV ratio <2.0 and ICA EDV <40 cm/sec <50% ICA stenosis ICA PSV is <125 cm/sec and plaque or intimal thickening is visible sonographically additional criteria include ICA/CCA PSV ratio <2.0 and ICA EDV <40 cm/sec 50-69% ICA stenosis ICA PSV is 125-230 cm/sec and plaque is visible sonographically additional criteria include ICA/CCA PSV ratio of 2.0-4.0 and ICA EDV of 40-100 cm/sec 70% ICA stenosis but less than near occlusion ICA PSV is >230 cm/sec and visible plaque and luminal narrowing are seen at puente-scale and color Dopp ler ultrasound (the higher the Doppler parameters lie above the threshold of 230 cm/sec, the greater the likelihood of severe disease) additional criteria include ICA/CCA PSV ratio >4 and ICA EDV >100 cm/sec
--- NOTE | 2024-03-20 15:24 | DVHSR ---
APPROVED REPORT EXAM: Two-dimensional and M-mode echocardiogram with Doppler and color Doppler. Blood Pressure: 166/98 mmHg INDICATION Syncope Surgery/Intervention CABG: RISK FACTORS Height: 5' 8", Weight: 155 DIMENSIONS LVDd5.5 (3.8-5.7cm)LA (2D)4.8 (1.9-4.0cm)Aortic Root3.7 (2.0-3.7cm) LVDs4.1 (2.5-4.0cm)LA (MM) (1.9-4.0cm)Aortic Cusp Exc (1.5-2.0cm) EF (%) 45.0 (55-70%)Rt. Atrium4.8 (1.9-4.0cm)Asc. Aorta cm IVSd1.2 (0.7-1.1cm)RV (D) (1.8-2.4cm) PWd1.2 (0.7-1.1cm) Mitral Valve MitralMitral Stenosis E wave1.10m/sMV Mean GR.mmHg A wave0.40m/sMV Peak GR.mmHg E/A ratio2.82D MVAcm2 Aortic Valve Aortic ValveAortic Stenosis V10.60m/Toan Mean GR.44mmHg V24.40m/Toan Peak GR.79mmHg LVOT Diameter2.3 (1.8-2.4cm)Doppler AVA0.57cm2 AI P 1/2 Qvaz008.68ms Pulmonic Valve V20.60m/s Tricuspid Valve TR Velocity2.84m/s [id number] LEFT VENTRICLE The left ventricle is of normal size. Wall thickness is mildly increased. Ejection fraction is mild ly decreased and is estimated at 45%. There is hypokinesis of the basal and mid posterior wall. [place] stolic function is indeterminate as patient is atrial fibrillation at time of the study. E to E prim e ratio is in the indeterminate range. RIGHT VENTRICLE The right ventricle is of normal size. Systolic function is preserved. ATRIA There is moderate biatrial enlargement. Interatrial septum isn't well visualized. MITRAL VALVE There is mild mitral annular calcification. There is mild mitral regurgitation. PULMONIC VALVE Likely normal. TRICUSPID VALVE Normal structure and function. There is mild tricuspid regurgitation. PA systolic pressure is estim ated at 40-45 mm Hg. AORTIC VALVE Valve leaflets are heavily calcified. Leaflet mobility is very restricted. Aortic valve area is est imated at 0.7 cm2. Peak velocity is 4.5 m/sec with a mean gradient of 44 mm Hg. There is mild insuf ficiency. GREAT VESSELS The aortic root is of normal size. The proximal ascending aorta isn't visualized. PERICARDIAL EFFUSION There is no significant pericardial effusion. IVC is dilated in size. Conclusion Heavily calcified aortic valve with severe stenosis. Normal left ventricular size with mildly decreased systolic function. Ejection fraction is estimated at 45%. Hypokinesis of the posterior wall. Mild concentric left ventricular hypertrophy. Diastolic function is indeterminate as patient is in atrial fibrillation at the time of the study. Normal right ventricular size and systolic function. Moderate biatrial enlargement. PA systolic pressure is estimated at 40-45 mm Hg. No prior study for comparison.
--- NOTE | 2024-03-20 17:32 | DVHINCON2 ---
Date Seen: Mar 20, 2024 Referring Physician MD Nilda Reason for Consultation Chest pain and syncope History of Present Illness This is a 73-year-old male patient who presents to the emergency room with chief complaint of syncopal episode. The patient reports he was at [employer] yesterday and upon standing up felt dizzy and then sustained a syncopal episode. He reports falling forward and hitting the left side of his head as well as his left chest wall. Patient does not recall if he lost consciousness. EMS was called and the patient was brought to the emergency room for further evaluation. Cardiology has now been consulted for syncope and chest pain. The patient de scribes the chest pain as provoked with touch, intermittent, sharp in nature, and left sided without radiation. Pain is reproducible upon palpation. Initial twelve lead electrocardiogram reveals atrial fibrillation. Initial troponin level of 20ng/L with flat trend thereafter. Significant past medical history includes atrial fibrillation (on Eliquis), congestive heart failure, h ypertension, dyslipidemia, type 2 diabetes mellitus, end-stage renal disease previously on hemodialysis and now status post renal transplant in 2019, and obesity. Of note, the patient has a midline scar to his chest. When asked about what kind of surgery he had, the patient can not recall. Patient denies having a coronary artery bypass graft as well as any valve replacements. The patient is a very poor historian and states that the surgery took place in 2012 at a hospital in [place]. He states he currently follows up with a cotton picker at [facility]. Past Medical History Past medical history reviewed. No other significant than mentioned above. 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 Social History Denies the use of tobacco, alcohol or illicit drugs. Allergies: Coded Allergies: NO KNOWN ALLERGIES (Unverified , 03/19/24) Home Meds Reported Medications Allopurinol (Allopurinol) 100 Mg Tab, 1 DAILY 03/20/24 Atorvastatin Calcium (ATORVASTATIN CALCIUM) 20 Mg Tab, 1 TAB PO 03/20/24 Apixaban Base (ELIQUIS) 5 Mg Tab, 1 TAB BID 03/20/24 Furosemide (Furosemide) 20 Mg Tab, 1 DAILY 03/20/24 Pantoprazole Sodium Sesquihydr (Pantoprazole Sodium Dr) 40 Mg Tab, 1 TAB PO DAILY 03/20/24 Aspirin (Aspirin Low Dose) 81 Mg Tab, 1 TAB DAILY 03/20/24 Dapagliflozin Propanediol (Farxiga) 10 Mg Tab, 1 DAILY 03/20/24 Prednisone (Prednisone) 5 Mg Tab, 1 TAB DAILY 03/20/24 Insulin Lispro (Insulin Lispro Kwikpen) 100 Unit/Ml Inj, 8 UNIT SC TID 03/20/24 Insulin Glargine (Lantus Solostar) 100 Unit/Ml Inj 03/20/24 Amlodipine Besylate (Amlodipine Besylate) 10 Mg Tab, 1 TAB PO DAILY 03/20/24 Metoprolol Succinate (Metoprolol Succinate Er) 25 Mg Tab, 0.5 TAB PO DAILY 03/20/24 Home Meds Home medications reviewed. Current Medications Current Medications Medications (Trade) Dose Ordered Sig/Marquise Route PRN Reason Start Time Stop Time Status Last Admin Atorvastatin Calcium (Lipitor) 10 mg HS PO 03/19/24 22:00 03/20/24 00:10 Amlodipine Besylate (Norvasc Tablet) 5 mg DAILY PO 03/20/24 10:00 03/20/24 09:50 Hydralazine HCl (Apresoline Injection) 10 mg Q6HP PRN IV SBP>150 03/19/24 20:15 Diagnostic Test (Pha) (Accu-Chek Comfort Curve T) 1 strip IQ4HR 03/20/24 00:00 03/20/24 16:15 Insulin Human Regular (InsuLIN R) IQ4HR SC 03/20/24 00:00 03/20/24 16:13 Dextrose 50 ml UD PRN IV Blood Sugar LESS THAN 60 03/19/24 20:15 Sodium Chloride 1,000 ml @ 60 mls/hr [id number] IV 03/19/24 20:15 03/20/24 14:15 Acetaminophen/ Hydrocodone Bitart ([place] 5/325MG Tab) 1 tab Q4HP PRN PO MODERATE PAIN (4-6 PAIN SCALE) 03/19/24 20:15 03/20/24 14:21 Ondansetron HCl (Zofran) 4 mg Q4HP PRN IV NAUSEA / VOMITING 03/19/24 20:15 Docusate Sodium (Colace Capsule) 100 mg BIDPRN PRN PO FOR CONSTIPATION 03/19/24 20:15 Acetaminophen (Tylenol Tablet) 650 mg Q6HP PRN PO PAIN SCALE 1-3 OR TEMP>100.4 03/19/24 20:15 Apixaban (Eliquis) 5 mg BID PO 03/19/24 22:00 03/20/24 09:48 Nitroglycerin (Ntrostat Sublingual) 0.4 mg Q5MINP PRN SL FOR CHEST PAIN 03/19/24 23:30 Morphine Sulfate 2 mg Q30M PRN IV FOR CHEST PAIN 03/19/24 23:30 Insulin Glargine (Lantus) 20 units HS SC 03/20/24 22:00 Review of Systems Constitutional: No symptom reported Ears, Nose, & Throat: No symptom reported Eyes: No symptom reported Neurological: Syncope Pulmonary/Respiratory: No symptoms reported Cardiovascular: Chest pain Gastrointestinal: No symptom reported Genitourinary: No symptom reported Musculoskeletal: No symptom reported Skin: No symptom reported Psychiatric: No symptom reported Endocrine: No symptom reported Hematologic/Lymphatic: No symptom reported Vital Signs Vital Signs Date Time Temp Pulse Resp B/P (MAP) Pulse Ox O2 Delivery O2 Flow Rate FiO2 03/20/24 16:55 98.0 68 16 140/70 (93) 94 98.0 03/20/24 08:00 Room Air* 0 21 Physical Exam General Appearance: Cooperative. Obese Pulmonary/Respiratory: Clear, bilateral breaths sounds. Cardiovascular/Chest: Irregular rate and rhythm. Systolic murmur Peripheral Pulses: 2+ Radial (R). 2+ Radial (L). Abdominal Exam: Normal bowel sounds. Ankle Exam: Negative ankle edema Lower extremities: Negative lower extremity edema Neuro/Mental Status: A/OX4, coherent. Thoughts/Psych: Normal thought pattern. Appropriate mood and affect. Good judgment and insight. Appearance: No acute distress. Skin Exam: Normal inspection. Normal color. Warm and dry. Labs/Diagnostic Data Labs Test 03/20/24 14:10 03/20/24 13:50 03/20/24 07:30 03/20/24 03:10 Range/Units POC Glucose 269 H 70-106 mg/dl D-Dimer, Quantitative 1.25 H 0.0-0.49 mg/L FEU White Blood Count 4.9 4.4-10.8 10^3/uL Red Blood Count 4.19 L 4.5-5.90 10^6/uL Hemoglobin 11.8 L 13.5-17.5 g/dL Hematocrit 35.9 L 41.0-53.0 % Mean Corpuscular Volume 85.8 80.0-100.0 fL Mean Corpuscular Hemoglobin 28.1 28.0-32.0 pg Mean Corpuscular Hemoglobin Concent 32.7 32.0-36.0 g/dL Red Cell Distribution Width 14.9 H 11.8-14.3 % Platelet Count 137 L 140-450 10^3/uL Mean Platelet Volume 9.5 6.9-10.8 fL Neutrophils (%) (Auto) 59.1 37.0-80.0 % Lymphocytes (%) (Auto) 23.3 10.0-50.0 % Monocytes (%) (Auto) 11.5 0.0-12.0 % Eosinophils (%) (Auto) 5.3 0.0-7.0 % Basophils (%) (Auto) 0.8 0.0-2.0 % Neutrophils # (Auto) 2.9 1.6-8.6 10 ^3/uL Lymphocytes # (Auto) 1.1 0.4-5.4 10 ^3/uL Monocytes # (Auto) 0.6 0-1.3 10 ^3/uL Eosinophils # (Auto) 0.3 0-0.8 10 ^3/uL Basophils # (Auto) 0 0-0.2 10 ^3/uL Nucleated Red Blood Cells 0.1 % Sodium Level 138 # 136-145 mmol/L Potassium Level 4.2 3.5-5.1 mmol/L Chloride Level 104 98-107 mmol/L Carbon Dioxide Level 26 20-31 mmol/L Anion Gap 8 5-15 Blood Urea Nitrogen 32 #H 9-23 mg/dL Creatinine 1.95 H 0.700-1.30 mg/dL Glomerular Filtration Rate Calc 35 >90 mL/min BUN/Creatinine Ratio 16.4 10.0-20.0 Serum Glucose 109 #H 74-106 mg/dL Calcium Level 9.3 8.7-10.4 mg/dL Phosphorus Level 4.0 2.4-5.1 mg/dL Magnesium Level 2.4 1.6-2.6 mg/dL Total Bilirubin 0.8 0.2-1.0 mg/dL Aspartate Amino Transferase (AST) 15 13-40 U/L Alanine Aminotransferase (ALT) 13 7-40 U/L Alkaline Phosphatase 95 46-116 U/L Total Protein 6.2 5.7-8.2 g/dL Albumin 4.1 3.2-4.8 g/dL Urine Color Light-yellow Yellow Urine Clarity Clear Clear Urine pH 5.5 5.0-9.0 Urine Specific [place] 1.021 1.001-1.035 Urine Protein Negative Negative Urine Ketones Negative Negative Urine Blood Negative Negative /uL Urine Nitrite Negative Negative Urine Bilirubin Negative Negative Urine Urobilinogen Normal Negative mg/dL Urine Leukocyte Esterase Negative Negative /uL Urine RBC 1 0 - 3 /hpf Urine Microscopic WBC 0-3 /HPF Urine Squamous Epithelial Cells None seen <5 /hpf Urine Bacteria None seen None Seen /hpf Urine Creatinine 46.43 30.0-125.0 mg/dL Urine Protein/Creatinine Ratio 0.24 Urine Sodium 20 L 40-220 mmol/L Urine Glucose 4+ H Normal mg/dL Urine Total Protein 11.3 1-14 mg/dL Test 03/19/24 15:36 Range/Units Troponin I High Sensitivity 21 </=54 ng/L Assessment Syncope, rule out cardiac etiology Severe aortic stenosis Acute on chronic HFmrEF, NYHA class III Unspecified atrial fibrillation (on Eliquis) Hypertension Dyslipidemia Questionable coronary artery disease Type 2 diabetes mellitus History of ESRD status post renal transplant Obesity Plan/Recommendation We will continue with the following plan/recommendations (Dr. Sapp): A transthoracic echocardiogram reveals an EF of 45%, RVSP 40-45 mmHg, with severe aortic stenosis. Syncopal episode most likely secondary to severe aortic stenosis. At this time we will recommend for the patient to be transferred to higher level of care for possible TAVR procedure. In the meantime, initiate guideline directed medical therapy for CHF as tolerated. Unable to initiate full GDMT given poor renal function (will hold SHEEBA/ARB/ARNI, SGLT2i and MRA for now). ?[id number] VASc score: 4 points. The patient takes Eliquis at home. At this time, we will stop Eliquis therapy given possible transfer for TAVR. Continue beta-cornel. We will also try to obtain medical records from patient's primary cotton picker at [facility] for more accurate history. Thank you for allowing us to care for this patient. Please call with any questions or concerns. Critical care time spent: 41 minutes This medical document was created using an electronic medical record system with voice recognition software and computerized dictation system. Although this document has been carefully reviewed, there might still be some phonetic and typographical errors. Occasional wrong-word or ``sound-alike substitutions may have occurred due to the inherent limitations of voice recognition software. These areas are purely typographical due to imperfections of the software programs and do not reflect any compromise in the patient's medical care. Please read the chart carefully and recognize, using context, where these substitutions have occurred. Plan discussed with: Patient NYHA Physical activity limitations: Class3(Marked) ordinary (activity causes symtoms) Date of Service: Mar 20, 2024 Billing Provider: TRIXIE SAPP MD Cardiology Common Codes: [id number] INP/OBS CARE (High) Cardiology Consultation Codes: [id number] CONSULT <45MIN DEJA STROUD Mar 20, 2024 17:32
[2024-03-20] MEDS: INSULIN LANTUS (GLARGINE) 1 /0.01ml (100units/ml) SC SCH (21:27)
[2024-03-21] VITALS (8 sets, daily range): BP systolic 135–158; BP diastolic 68–83; PULSE 52–100; RESP 16–20; TEMP 97.7–98.2; O2SAT 95–99
[2024-03-21] MEDS: METOPROLOL SUCCINATE XL 50 MG TAB PO SCH (09:07)
--- NOTE | 2024-03-21 10:30 | DVHPN2 ---
Progress Note Date Seen: Mar 21, 2024 Medical Necessity Reason Pt with a Central, PICC or Fol: No Subjective Review of Systems: CVS:Abnormal, RESPIRATORY:Abnormal Objective vital signs Vital Sign Date Time Temp Pulse Resp B/P (MAP) Pulse Ox O2 Delivery O2 Flow Rate FiO2 03/21/24 09:07 67 158/83 03/21/24 08:47 98.2 16 98 98.2 03/20/24 20:00 Room Air* 0 21 Total Intake and Output 03/20/24 03/20/24 03/21/24 15:00 23:00 07:00 Intake Total 600 ml 1520 ml 650 ml Output Total 300 ml Balance 600 ml 1520 ml 350 ml medications Current Medications Medications Dose Ordered Sig/Marquise Route Start Time Stop Time Status Last Admin Dose Admin Atorvastatin Calcium 10 mg HS PO 03/19/24 22:00 03/20/24 21:29 10 MG Amlodipine Besylate 5 mg DAILY PO 03/20/24 10:00 03/21/24 09:06 5 MG Hydralazine HCl 10 mg Q6HP PRN IV 03/19/24 20:15 Diagnostic Test (Pha) 1 strip IQ4HR 03/20/24 00:00 03/21/24 08:00 1 STRIP Insulin Human Regular IQ4HR SC 03/20/24 00:00 03/21/24 00:13 2 UNITS Dextrose 50 ml UD PRN IV 03/19/24 20:15 Sodium Chloride 1,000 ml @ 60 mls/hr [id number] IV 03/19/24 20:15 03/21/24 04:05 60 MLS/HR Acetaminophen/ Hydrocodone Bitart 1 tab Q4HP PRN PO 03/19/24 20:15 03/21/24 08:04 1 TAB Ondansetron HCl 4 mg Q4HP PRN IV 03/19/24 20:15 Docusate Sodium 100 mg BIDPRN PRN PO 03/19/24 20:15 Acetaminophen 650 mg Q6HP PRN PO 03/19/24 20:15 Nitroglycerin 0.4 mg Q5MINP PRN SL 03/19/24 23:30 Morphine Sulfate 2 mg Q30M PRN IV 03/19/24 23:30 Insulin Glargine 20 units HS SC 03/20/24 22:00 Metoprolol Succinate 25 mg DAILY PO 03/21/24 10:00 03/21/24 09:07 25 MG Examination: GENERAL:Abnormal, LUNGS:Abnormal, CVS:Abnormal laboratory and microbiology Laboratory Tests 03/20/24 07:30 Test 03/20/24 07:30 Range/Units Serum Glucose 109 #H 74-106 mg/dL Problem List/Assessment/Plan Problem List/Assessment/Plan Acute kidney injury superimposed Chronic Kidney Disease secondary hemodynamic mediated Uncontrolled diabetes mellitus Hypertension A Fib Chest pain Severe w/ EF 40% BP meds lasix po BID Avoid nephrotoxic medications Strict I&Os kidney ultrasound- atrophic kidney Insulin sliding scale Cardiology consult recs HLOC TAVR Plan discussed with: Patient NISHANT ABRAHAM MD Mar 21, 2024 10:30
--- NOTE | 2024-03-21 10:50 | DVHPN2 ---
Consult Progress Note Date Seen: Mar 21, 2024 Subjective Review of Systems: CVS:Normal, RESPIRATORY:Normal, NEURO:Normal Objective vital signs Vital Sign Date Time Temp Pulse Resp B/P (MAP) Pulse Ox O2 Delivery O2 Flow Rate FiO2 03/21/24 09:07 67 158/83 03/21/24 08:47 98.2 16 98 98.2 03/20/24 20:00 Room Air* 0 21 Total Intake and Output 03/20/24 03/20/24 03/21/24 15:00 23:00 07:00 Intake Total 600 ml 1520 ml 650 ml Output Total 300 ml Balance 600 ml 1520 ml 350 ml medications Current Medications Medications Dose Ordered Sig/Marquise Route Start Time Stop Time Status Last Admin Dose Admin Atorvastatin Calcium 10 mg HS PO 03/19/24 22:00 03/20/24 21:29 10 MG Amlodipine Besylate 5 mg DAILY PO 03/20/24 10:00 03/21/24 09:06 5 MG Hydralazine HCl 10 mg Q6HP PRN IV 03/19/24 20:15 Diagnostic Test (Pha) 1 strip IQ4HR 03/20/24 00:00 03/21/24 08:00 1 STRIP Insulin Human Regular IQ4HR SC 03/20/24 00:00 03/21/24 00:13 2 UNITS Dextrose 50 ml UD PRN IV 03/19/24 20:15 Acetaminophen/ Hydrocodone Bitart 1 tab Q4HP PRN PO 03/19/24 20:15 03/21/24 08:04 1 TAB Ondansetron HCl 4 mg Q4HP PRN IV 03/19/24 20:15 Docusate Sodium 100 mg BIDPRN PRN PO 03/19/24 20:15 Acetaminophen 650 mg Q6HP PRN PO 03/19/24 20:15 Nitroglycerin 0.4 mg Q5MINP PRN SL 03/19/24 23:30 Morphine Sulfate 2 mg Q30M PRN IV 03/19/24 23:30 Insulin Glargine 20 units HS SC 03/20/24 22:00 Metoprolol Succinate 25 mg DAILY PO 03/21/24 10:00 03/21/24 09:07 25 MG Furosemide 40 mg BIDD PO 03/21/24 10:30 UNV Examination: LUNGS:Normal, CVS:Abnormal (Systolic murmur IV/), NEURO:Normal laboratory and microbiology Laboratory Tests 03/20/24 07:30 Test 03/20/24 07:30 Range/Units Serum Glucose 109 #H 74-106 mg/dL Problem List/Assessment/Plan Problem List/Assessment/Plan Syncope in the setting of critical aortic valve stenosis Acute on chronic HFmrEF, NYHA class III Unspecified atrial fibrillation (on Eliquis) Hypertension Dyslipidemia Hx of ESRD status post renal transplant Type 2 diabetes mellitus ZACK on CKD Obesity Plan/Recommendation (Dr. Dale) A transthoracic echocardiogram revealed an LVEF of 45%, RVSP 40-45 mmHg, with severe aortic valve stenosis. Transfer to higher level of care for possible TAVR procedure. In the meantime, initiate guideline directed medical therapy for CHF as renal function permits. Hold Eliquis therapy given upcoming TAVR ([id number] VASc score: 4 points). Continue beta-cornel for rate control. Monitor ECG changes and notify. The patient could benefit for cardiac amyloidosis testing as outpatient. Thank you for allowing us to care for this patient. Please call with any questions or concerns. This medical document was created using an electronic medical record system with voice recognition software and computerized dictation system. Although this document has been carefully reviewed, there might still be some phonetic and typographical errors. Occasional wrong-word or ``sound-alike substitutions may have occurred due to the inherent limitations of voice recognition software. These areas are purely typographical due to imperfections of the software programs and do not reflect any compromise in the patient's medical care. Please read the chart carefully and recognize, using context, where these substitutions have occurred. Plan discussed with: Patient, Other Date of Service: Mar 21, 2024 Billing Provider: RICHARD LOPEZ Cardiology Common Codes: [id number] HOSP CARE(High RICHARD LOPEZ Mar 21, 2024 10:50
[2024-03-21] MEDS: DOCUSATE SOD 100 MG CAP PO PRN (11:12)
[2024-03-21] MEDS: FUROSEMIDE 40 MG TAB PO SCH (11:15)
[2024-03-21 12:05] LABS: Chloride 105 mmol/L (98-107); Potassium 4.4 mmol/L (3.5-5.1); Sodium 137 mmol/L (136-145)
[2024-03-21 12:06] LABS: Anion Gap 7 (5-15); Calcium 9.2 mg/dL (8.7-10.4); Carbon Dioxide 25 mmol/L (20-31)
[2024-03-21 12:11] LABS: BUN/Creatinine Ratio 14.5 (10.0-20.0)
[2024-03-21 12:16] LABS: Blood Urea Nitrogen 25 mg/dL (9-23); Glucose 150 mg/dL (74-106)
--- NOTE | 2024-03-21 15:36 | DVHDS2 ---
Discharge Summary Date of Admission Mar 19, 2024 at 23:19 Date of Discharge: Mar 21, 2024 Labs/Diagnostic Data: Laboratory Results Test 03/21/24 11:57 03/21/24 11:24 03/20/24 13:50 03/20/24 07:30 POC Glucose 138 mg/dl (70-106) Sodium Level 137 mmol/L (136-145) Potassium Level 4.4 mmol/L (3.5-5.1) Chloride Level 105 mmol/L (98-107) Carbon Dioxide Level 25 mmol/L (20-31) Anion Gap 7 (5-15) Blood Urea Nitrogen 25 mg/dL (9-23) Creatinine 1.73 mg/dL (0.700-1.30) Glomerular Filtration Rate Calc 41 mL/min (>90) BUN/Creatinine Ratio 14.5 (10.0-20.0) Serum Glucose 150 mg/dL (74-106) Calcium Level 9.2 mg/dL (8.7-10.4) D-Dimer, Quantitative 1.25 mg/L FEU (0.0-0.49) White Blood Count 4.9 10^3/uL (4.4-10.8) Red Blood Count 4.19 10^6/uL (4.5-5.90) Hemoglobin 11.8 g/dL (13.5-17.5) Hematocrit 35.9 % (41.0-53.0) Mean Corpuscular Volume 85.8 fL (80.0-100.0) Mean Corpuscular Hemoglobin 28.1 pg (28.0-32.0) Mean Corpuscular Hemoglobin Concent 32.7 g/dL (32.0-36.0) Red Cell Distribution Width 14.9 % (11.8-14.3) Platelet Count 137 10^3/uL (140-450) Mean Platelet Volume 9.5 fL (6.9-10.8) Neutrophils (%) (Auto) 59.1 % (37.0-80.0) Lymphocytes (%) (Auto) 23.3 % (10.0-50.0) Monocytes (%) (Auto) 11.5 % (0.0-12.0) Eosinophils (%) (Auto) 5.3 % (0.0-7.0) Basophils (%) (Auto) 0.8 % (0.0-2.0) Neutrophils # (Auto) 2.9 10 ^3/uL (1.6-8.6) Lymphocytes # (Auto) 1.1 10 ^3/uL (0.4-5.4) Monocytes # (Auto) 0.6 10 ^3/uL (0-1.3) Eosinophils # (Auto) 0.3 10 ^3/uL (0-0.8) Basophils # (Auto) 0 10 ^3/uL (0-0.2) Nucleated Red Blood Cells 0.1 % Phosphorus Level 4.0 mg/dL (2.4-5.1) Magnesium Level 2.4 mg/dL (1.6-2.6) Total Bilirubin 0.8 mg/dL (0.2-1.0) Aspartate Amino Transferase (AST) 15 U/L (13-40) Alanine Aminotransferase (ALT) 13 U/L (7-40) Alkaline Phosphatase 95 U/L (46-116) Total Protein 6.2 g/dL (5.7-8.2) Albumin 4.1 g/dL (3.2-4.8) Vitamin D 25-Hydroxy 42.7 ng/mL (30.0-100) Parathyroid Hormone (Intact) 145.6 pg/mL (18.4-80.1) Test 03/20/24 03:10 03/19/24 15:36 Urine Color Light-yellow (Yellow) Urine Clarity Clear (Clear) Urine pH 5.5 (5.0-9.0) Urine Specific [place] 1.021 (1.001-1.035) Urine Protein Negative (Negative) Urine Ketones Negative (Negative) Urine Blood Negative /uL (Negative) Urine Nitrite Negative (Negative) Urine Bilirubin Negative (Negative) Urine Urobilinogen Normal mg/dL (Negative) Urine Leukocyte Esterase Negative /uL (Negative) Urine RBC 1 /hpf (0 - 3) Urine Microscopic WBC /HPF (0-3) Urine Squamous Epithelial Cells None seen /hpf (<5) Urine Bacteria None seen /hpf (None Seen) Urine Creatinine 46.43 mg/dL (30.0-125.0) Urine Protein/Creatinine Ratio 0.24 Urine Sodium 20 mmol/L (40-220) Urine Glucose 4+ mg/dL (Normal) Urine Total Protein 11.3 mg/dL (1-14) Troponin I High Sensitivity 21 ng/L (</=54) Other Laboratory Tests 03/21/24 11:24 03/20/24 07:30 Brief Hx & Hospital Course: 73 yo M with DM, HTN, HLD, ESRD s/p renal transplant now CKD admitted for syncope. Suspicious of cardiac syncope. After evaluation and echo, found to have moderately decreased EF and severe aortic stenosis. Patient is for transfer to [facility] for possible TAVR. Condition at Discharge: Stable Final Diagnosis/Problems List syncope 2/2 severe aortic stenosis Discharge Disposition: Acute Care Facility Discharge Instruct/Medications Diet: Consistent carbohydrate, Cardiac 2g Na,low cholest Activity: No Restrictions, As Tolerated 45 Discharge Statement: "Patient was advised to return to the ER or call 911 if any headaches, dizziness, shortness of breath, chest pain, abdominal pain, bleeding, fevers, or worsening of medical condition. Patient was counseled about treatment plan, medications, possible side effects, patientverbalized understanding. All questions were answered to the best of my ability. This discharge took greater then 30 minutes in planning, reviewing documentation, counseling the patient, and discussing with other team members." ASSESSMENT ASSESSMENT Assessment syncope 2/2 moderately decreased EF NYHA 3 acute on chronic heart failure HTN HLD DM ZACK VMN on CKD anemia chronic disease thrombocytopenia s/p metatarsal amputation Obesity Date of Service: Mar 21, 2024 Billing Provider: MARTIN THAYER MD Common Visit Codes: [id number]-REX/OBS DISCH DAY >30min MARTIN THAYER MD Mar 21, 2024 15:36
[2024-03-22] VITALS (8 sets, daily range): BP systolic 116–145; BP diastolic 63–77; PULSE 46–79; RESP 16–18; TEMP 97.9–98.6; O2SAT 96–99
[2024-03-22 08:16] LABS: Basophils # (auto) 0 10 ^3/uL (0-0.2); Basophils % (auto) 0.7 % (0.0-2.0); Eosinophils # (auto) 0.3 10 ^3/uL (0-0.8); Hematocrit 38.9 % (41.0-53.0); Hemoglobin 12.7 g/dL (13.5-17.5); Lymphocytes # (auto) 1.2 10 ^3/uL (0.4-5.4); Lymphocytes % (auto) 23.8 % (10.0-50.0); Mean Corpuscular Hemoglobin 28.2 pg (28.0-32.0); Mean Corpuscular Hgb Conc. 32.7 g/dL (32.0-36.0); Mean Corpuscular Volume 86.3 fL (80.0-100.0); Monocytes # (auto) 0.5 10 ^3/uL (0-1.3); Monocytes % (auto) 9.9 % (0.0-12.0); Neutrophils # (auto) 2.9 10 ^3/uL (1.6-8.6); Neutrophils % (auto) 59.6 % (37.0-80.0); Nucleated Red Blood Cells % 0.1 %; Platelet Count (auto) 146 10^3/uL (140-450); Red Cell Distribution Width 14.7 % (11.8-14.3); White Blood Cell 4.8 10^3/uL (4.4-10.8)
[2024-03-22 08:21] LABS: Anion Gap 7 (5-15); Carbon Dioxide 28 mmol/L (20-31); Chloride 101 mmol/L (98-107); Potassium 3.8 mmol/L (3.5-5.1); Sodium 136 mmol/L (136-145)
[2024-03-22 08:22] LABS: Calcium 9.6 mg/dL (8.7-10.4)
[2024-03-22 08:27] LABS: BUN/Creatinine Ratio 13.5 (10.0-20.0); Glucose 91 mg/dL (74-106)
[2024-03-22 08:28] LABS: Blood Urea Nitrogen 26 mg/dL (9-23)
[2024-03-22 08:29] LABS: Phosphorus 4.2 mg/dL (2.4-5.1)
--- NOTE | 2024-03-22 09:59 | DVHPN2 ---
Progress Note Date Seen: Mar 22, 2024 Medical Necessity Reason Pt with a Central, PICC or Fol: No Subjective Patient reports: No new complaints Objective vital signs Vital Sign Date Time Temp Pulse Resp B/P (MAP) Pulse Ox O2 Delivery O2 Flow Rate FiO2 03/22/24 08:46 98.0 77 16 145/71 (95) 99 98.0 03/22/24 08:00 Room Air* 0 21 Total Intake and Output 03/21/24 03/21/24 03/22/24 15:00 23:00 07:00 Intake Total 800 ml 400 ml Balance 800 ml 400 ml medications Current Medications Medications Dose Ordered Sig/Marquise Route Start Time Stop Time Status Last Admin Dose Admin Atorvastatin Calcium 10 mg HS PO 03/19/24 22:00 03/21/24 21:17 10 MG Amlodipine Besylate 5 mg DAILY PO 03/20/24 10:00 03/21/24 09:06 5 MG Diagnostic Test (Pha) 1 strip IQ4HR 03/20/24 00:00 03/22/24 08:00 1 STRIP Insulin Human Regular IQ4HR SC 03/20/24 00:00 03/21/24 20:31 4 UNITS Dextrose 50 ml UD PRN IV 03/19/24 20:15 Acetaminophen/ Hydrocodone Bitart 1 tab Q4HP PRN PO 03/19/24 20:15 03/22/24 03:35 1 TAB Acetaminophen 650 mg Q6HP PRN PO 03/19/24 20:15 Insulin Glargine 20 units HS SC 03/20/24 22:00 03/21/24 21:19 20 UNITS Metoprolol Succinate 25 mg DAILY PO 03/21/24 10:00 03/21/24 09:07 25 MG Furosemide 40 mg BIDD PO 03/21/24 10:46 03/22/24 05:11 40 MG Polyethylene Glycol 17 gm DAILYPRN PRN PO 03/21/24 15:15 Examination: GENERAL:Abnormal, LUNGS:Abnormal, CVS:Abnormal laboratory and microbiology Laboratory Tests 03/22/24 07:34 Test 03/22/24 07:34 Range/Units Serum Glucose 91 74-106 mg/dL Problem List/Assessment/Plan Problem List/Assessment/Plan Acute kidney injury superimposed Chronic Kidney Disease secondary hemodynamic mediated Uncontrolled diabetes mellitus Hypertension A Fib Chest pain Severe w/ EF 40% BP meds lasix po BID Avoid nephrotoxic medications Strict I&Os kidney ultrasound- atrophic kidney Insulin sliding scale Cardiology consult recs HLOC TAVR Plan discussed with: Patient My Orders My Orders Orders - NISHANT ABRAHAM MD Procedure Category Date Status Time Furosemide Tablet PHA 03/21/24 In Process (Lasix Tablet) 10:46 NISHANT ABRAHAM MD Mar 22, 2024 09:59
--- NOTE | 2024-03-22 10:21 | DVHPN2 ---
Consult Progress Note Date Seen: Mar 22, 2024 Subjective Review of Systems: CVS:Normal, RESPIRATORY:Normal, MSK:Abnormal, NEURO:Normal Other Systems: C/o left rib cage pain Objective vital signs Vital Sign Date Time Temp Pulse Resp B/P (MAP) Pulse Ox O2 Delivery O2 Flow Rate FiO2 03/22/24 10:00 77 143/71 03/22/24 08:46 98.0 16 99 98.0 03/22/24 08:00 Room Air* 0 21 Total Intake and Output 03/21/24 03/21/24 03/22/24 15:00 23:00 07:00 Intake Total 800 ml 400 ml Balance 800 ml 400 ml medications Current Medications Medications Dose Ordered Sig/Marquise Route Start Time Stop Time Status Last Admin Dose Admin Atorvastatin Calcium 10 mg HS PO 03/19/24 22:00 03/21/24 21:17 10 MG Amlodipine Besylate 5 mg DAILY PO 03/20/24 10:00 03/22/24 09:58 5 MG Diagnostic Test (Pha) 1 strip IQ4HR 03/20/24 00:00 03/22/24 08:00 1 STRIP Insulin Human Regular IQ4HR SC 03/20/24 00:00 03/21/24 20:31 4 UNITS Dextrose 50 ml UD PRN IV 03/19/24 20:15 Acetaminophen/ Hydrocodone Bitart 1 tab Q4HP PRN PO 03/19/24 20:15 03/22/24 03:35 1 TAB Acetaminophen 650 mg Q6HP PRN PO 03/19/24 20:15 Insulin Glargine 20 units HS SC 03/20/24 22:00 03/21/24 21:19 20 UNITS Metoprolol Succinate 25 mg DAILY PO 03/21/24 10:00 03/22/24 10:00 25 MG Furosemide 40 mg BIDD PO 03/21/24 10:46 03/22/24 05:11 40 MG Polyethylene Glycol 17 gm DAILYPRN PRN PO 03/21/24 15:15 Examination: GENERAL:Normal, LUNGS:Normal, CVS:Abnormal (Systolic murmur IV/ radiates to RSB), MSK:Abnormal (Left rib-cage tenderness to palpation), NEURO:Normal laboratory and microbiology Laboratory Tests 03/22/24 07:34 Test 03/22/24 07:34 Range/Units Serum Glucose 91 74-106 mg/dL Problem List/Assessment/Plan Problem List/Assessment/Plan Syncope in the setting of critical aortic valve stenosis Acute on chronic HFmrEF, NYHA class III Unspecified atrial fibrillation (on Eliquis) Hypertension Dyslipidemia Hx of ESRD status post renal transplant Type 2 diabetes mellitus ZACK on CKD Obesity Plan/Recommendation (Dr. Jones) A transthoracic echocardiogram revealed an LVEF of 45%, RVSP 40-45 mmHg, with severe aortic valve stenosis. Transfer to higher level of care for possible TAVR procedure. In the meantime, continue guideline directed medical therapy for CHF as renal function permits. Hold Eliquis therapy given upcoming TAVR ([id number] VASc score: 4 points). Continue beta-cornel for rate control. Monitor ECG changes and notify. The patient could benefit for cardiac amyloidosis testing as outpatient. Thank you for allowing us to care for this patient. Please call with any questions or concerns. This medical document was created using an electronic medical record system with voice recognition software and computerized dictation system. Although this document has been carefully reviewed, there might still be some phonetic and typographical errors. Occasional wrong-word or ``sound-alike substitutions may have occurred due to the inherent limitations of voice recognition software. These areas are purely typographical due to imperfections of the software programs and do not reflect any compromise in the patient's medical care. Please read the chart carefully and recognize, using context, where these substitutions have occurred. Plan discussed with: Patient, Other Date of Service: Mar 22, 2024 Billing Provider: RICHARD LOPEZ Cardiology Common Codes: [id number] HOSP CARE(High RICHARD LOPEZ Mar 22, 2024 10:21
[2024-03-22] MEDS: ACETAMINOPHEN 325 MG TAB PO PRN (10:57)
[2024-03-22] MEDS: amLODIPine BESYLATE 5 MG TAB PO ONE (14:15)
--- NOTE | 2024-03-22 16:36 | DVHPN2 ---
Assessment/Plan Assessment/Plan patient for transfer to [facility], accepting physician dr lamonte elam with ccardiologist dr camejo. Plan discussed with: Patient My Orders Orders - MARTIN THAYER MD Procedure Category Date Status Time Amlodipine Tablet PHA 03/23/24 In Process (Norvasc Tablet) 10:00 Date of Service: Mar 22, 2024 Billing Provider: MARTIN THAYER MD Common Visit Codes: [id number] INP/OBS CARE(HIGH) MARTIN THAYER MD Mar 22, 2024 16:36
[2024-03-23] VITALS (9 sets, daily range): BP systolic 125–157; BP diastolic 57–81; PULSE 48–82; RESP 17–20; TEMP 36.6; O2SAT 96–99
--- NOTE | 2024-03-23 09:02 | DVHPN2 ---
Consult Progress Note Date Seen: Mar 23, 2024 Subjective Review of Systems: CVS:Normal, RESPIRATORY:Normal, NEURO:Normal Objective vital signs Vital Sign Date Time Temp Pulse Resp B/P (MAP) Pulse Ox O2 Delivery O2 Flow Rate FiO2 03/23/24 06:25 142/76 03/23/24 05:00 98.6 82 18 98 98.6 03/22/24 20:00 Room Air* 0 21 Total Intake and Output 03/22/24 03/22/24 03/23/24 15:00 23:00 07:00 Intake Total 800 ml 300 ml Balance 800 ml 300 ml medications Current Medications Medications Dose Ordered Sig/Marquise Route Start Time Stop Time Status Last Admin Dose Admin Atorvastatin Calcium 10 mg HS PO 03/19/24 22:00 03/22/24 21:14 10 MG Diagnostic Test (Pha) 1 strip IQ4HR 03/20/24 00:00 03/23/24 05:05 1 STRIP Insulin Human Regular IQ4HR SC 03/20/24 00:00 03/22/24 21:21 8 UNITS Dextrose 50 ml UD PRN IV 03/19/24 20:15 Acetaminophen/ Hydrocodone Bitart 1 tab Q4HP PRN PO 03/19/24 20:15 03/22/24 03:35 1 TAB Acetaminophen 650 mg Q6HP PRN PO 03/19/24 20:15 03/23/24 00:39 650 MG Insulin Glargine 20 units HS SC 03/20/24 22:00 03/22/24 21:21 20 UNITS Metoprolol Succinate 25 mg DAILY PO 03/21/24 10:00 03/22/24 10:00 25 MG Furosemide 40 mg BIDD PO 03/21/24 10:46 03/23/24 06:25 40 MG Polyethylene Glycol 17 gm DAILYPRN PRN PO 03/21/24 15:15 Amlodipine Besylate 10 mg DAILY PO 03/23/24 10:00 Examination: LUNGS:Normal, CVS:Abnormal (Systolic murmur IV/ radiated to RSB. A-fib controlled rate), NEURO:Normal laboratory and microbiology Laboratory Tests 03/22/24 07:34 Test 03/22/24 07:34 Range/Units Serum Glucose 91 74-106 mg/dL Problem List/Assessment/Plan Problem List/Assessment/Plan Syncope in the setting of critical aortic valve stenosis Acute on chronic HFmrEF, NYHA class III Likely persistent atrial fibrillation, controlled rate (on Eliquis therapy at home) Hypertension Dyslipidemia Hx of ESRD status post renal transplant Type 2 diabetes mellitus ZACK on CKD Obesity Plan/Recommendation (Dr. Dale) A transthoracic echocardiogram revealed an LVEF of 45%, RVSP 40-45 mmHg, with severe aortic valve stenosis. Transfer to higher level of care for possible TAVR procedure. In the meantime, continue guideline directed medical therapy for CHF as renal function permits. Hold Eliquis therapy given upcoming TAVR ([id number] VASc score: 4 points). Continue beta-cornel for rate control. Monitor ECG changes and notify. The patient could benefit for cardiac amyloidosis testing as outpatient. Continue Nephrology recommendations. We will sign off at this time. Please call if in need to continue follow-up. Thank you for allowing us to care for this patient. This medical document was created using an electronic medical record system with voice recognition software and computerized dictation system. Although this document has been carefully reviewed, there might still be some phonetic and typographical errors. Occasional wrong-word or ``sound-alike substitutions may have occurred due to the inherent limitations of voice recognition software. These areas are purely typographical due to imperfections of the software programs and do not reflect any compromise in the patient's medical care. Please read the chart carefully and recognize, using context, where these substitutions have occurred. Plan discussed with: Patient, Other Date of Service: Mar 23, 2024 Billing Provider: RICHARD LOPEZ Cardiology Common Codes: [id number] HOSP CARE([facility] RICHARD LOPEZ Mar 23, 2024 09:02
[2024-03-23] MEDS: amLODIPine BESYLATE 5 MG TAB PO SCH (09:39)
--- NOTE | 2024-03-23 12:56 | DVHPN2 ---
Progress Note Date Seen: Mar 23, 2024 Medical Necessity Reason Pt with a Central, PICC or Fol: No Objective vital signs Vital Sign Date Time Temp Pulse Resp B/P (MAP) Pulse Ox O2 Delivery O2 Flow Rate FiO2 03/23/24 12:00 97.9 48 17 134/62 (86) 98 97.9 03/22/24 20:00 Room Air* 0 21 Total Intake and Output 03/22/24 03/22/24 03/23/24 15:00 23:00 07:00 Intake Total 800 ml 300 ml Balance 800 ml 300 ml medications Current Medications Medications Dose Ordered Sig/Marquise Route Start Time Stop Time Status Last Admin Dose Admin Atorvastatin Calcium 10 mg HS PO 03/19/24 22:00 03/22/24 21:14 10 MG Diagnostic Test (Pha) 1 strip IQ4HR 03/20/24 00:00 03/23/24 12:10 1 STRIP Insulin Human Regular IQ4HR SC 03/20/24 00:00 03/23/24 12:11 16 UNITS Dextrose 50 ml UD PRN IV 03/19/24 20:15 Acetaminophen/ Hydrocodone Bitart 1 tab Q4HP PRN PO 03/19/24 20:15 03/22/24 03:35 1 TAB Acetaminophen 650 mg Q6HP PRN PO 03/19/24 20:15 03/23/24 00:39 650 MG Insulin Glargine 20 units HS SC 03/20/24 22:00 03/22/24 21:21 20 UNITS Metoprolol Succinate 25 mg DAILY PO 03/21/24 10:00 03/23/24 09:40 25 MG Furosemide 40 mg BIDD PO 03/21/24 10:46 03/23/24 06:25 40 MG Polyethylene Glycol 17 gm DAILYPRN PRN PO 03/21/24 15:15 Amlodipine Besylate 10 mg DAILY PO 03/23/24 10:00 03/23/24 09:39 10 MG Examination: GENERAL:Abnormal, CVS:Abnormal laboratory and microbiology Laboratory Tests 03/22/24 07:34 Test 03/22/24 07:34 Range/Units Serum Glucose 91 74-106 mg/dL Problem List/Assessment/Plan Problem List/Assessment/Plan Acute kidney injury superimposed Chronic Kidney Disease secondary hemodynamic mediated Uncontrolled diabetes mellitus Hypertension A Fib Chest pain Severe w/ EF 40% obtain labs BP meds lasix po BID Avoid nephrotoxic medications Strict I&Os kidney ultrasound- atrophic kidney Insulin sliding scale Cardiology consult recs HLOC TAVR Plan discussed with: Patient NISHANT ABRAHAM MD Mar 23, 2024 12:56
--- NOTE | 2024-03-23 16:08 | DVHPN2 ---
Assessment/Plan Assessment/Plan 73 M with ZACK on CKD, HTN, HLD admitted for syncope, found to have moderately reduced EF and critical aortic stenosis. seen by cardio. plan to transfer to [facility] for TAVR. accepted and pending bed fro transfer assessment and plan syncope 2/2 moderately decreased EF NYHA 3 acute on chronic heart failure HTN HLD DM ZACK VMN on CKD anemia chronic disease thrombocytopenia s/p metatarsal amputation Obesity c/w current management telemetry HLOC transfer for TAVR ISS diet cardiac dvt ppx on hold for procedure Plan discussed with: Patient Date of Service: Mar 23, 2024 Billing Provider: MARTIN THAYER MD Common Visit Codes: [id number] INP/OBS CARE(HIGH) MARTIN THAYER MD Mar 23, 2024 16:08
[2024-03-23] MEDS: POLYETHYLENE GLYCOL 17 GM PWDR PO PRN (16:19)
[2024-03-23] MEDS: InsuLIN REG 1unit/0.01ml Soln (100units/ml) SC SCH (20:00)
== END 2024-03-23 22:58 | disposition short-term general hospital (02) | DRG 306 ==
LOC: ER 14:19 → EDBD 14:19 → TELE 23:19 → TELE-WESTW 23:20
PROVIDERS: ADMIT Nurse Practitioner Family; ATTEND Student in an Organized Health Care Education/Training Program
DX: I35.0 Nonrheumatic aortic (valve) stenosis (principal); I50.23 Acute on chronic systolic (congestive) heart failure; N17.0 Acute kidney failure with tubular necrosis; I13.0 Hypertensive heart and chronic kidney disease with heart failure and stage 1 through stage 4 chronic kidney disease, or unspecified chronic kidney disease; I24.9 Acute ischemic heart disease, unspecified; T86.19 Other complication of kidney transplant; D69.6 Thrombocytopenia, unspecified; I48.91 Unspecified atrial fibrillation; Z68.23 Body mass index [BMI] 23.0-23.9, adult; E11.65 Type 2 diabetes mellitus with hyperglycemia; N18.9 Chronic kidney disease, unspecified; D63.1 Anemia in chronic kidney disease; E11.22 Type 2 diabetes mellitus with diabetic chronic kidney disease; E66.9 Obesity, unspecified; E78.5 Hyperlipidemia, unspecified; Z79.01 Long term (current) use of anticoagulants; Z82.49 Family history of ischemic heart disease and other diseases of the circulatory system; Z83.3 Family history of diabetes mellitus; I25.2 Old myocardial infarction; Z95.5 Presence of coronary angioplasty implant and graft; Y83.0 Surgical operation with transplant of whole organ as the cause of abnormal reaction of the patient, or of later complication, without mention of misadventure at the time of the procedure; Z79.4 Long term (current) use of insulin; Z79.82 Long term (current) use of aspirin; Z79.899 Other long term (current) drug therapy
CPT/HCPCS: 36415; 71045; 76775; 80048; 80053; 81001; 82306; 82570; 82962; 83735; 83970; 84100; 84156; 84300; 84484; 85025; 85379; 93005; 93306; 93886; 99291; G0378; J1815; J2405